=== PATIENT | female | born 2000 ===

== ENCOUNTER 2024-05-10 21:25 | Emergency (ER) | payer SELFPAY ==
[~2024-05-10] VITALS: Ht 160 cm; Wt 100.0 kg
[2024-05-10 21:39] VITALS: BP 108/65; PULSE 76; RESP 16; TEMP 98.3
== END 2024-05-11 01:02 | disposition left against medical advice (07) ==
LOC: EMS 21:25
DX: M54.6 Pain in thoracic spine (principal); R51.9 Headache, unspecified; Z53.21 Procedure and treatment not carried out due to patient leaving prior to being seen by health care provider
CPT/HCPCS: 70450; 72125; 72131